=== PATIENT | male | born 1950 | race Hispanic/Latino ===

== ENCOUNTER 2023-12-29 09:47 | Inpatient (IN) | payer OTHER ==
[~2023-12-29] VITALS: Ht 177.8 cm; Wt 81.6 kg
[~2023-12-29 09:47] MED LIST: ACET-2079 PO; BICA50TA7 PO; IBUP-1554 PO; LEVO750T68 PO; OXYB5TAB20 PO; SENN-308 PO; SUCR1TAB2 PO; TAMS-1 PO
[2023-12-29 10:23] LABS: BASOPHILS # (AUTO) 0.05 K/uL (0.00-0.20); BASOPHILS % (AUTO) 0.5 % (0.0-5.0); EOSINOPHILS # (AUTO) 0.56 K/uL (0.00-0.70); EOSINOPHILS % (AUTO) 5.9 % (0.0-8.0); IMMATURE GRANULOCYTE ABSOLUTE 0.03 K/uL (0-1); LYMPHOCYTES # (AUTO) 1.8 K/uL (1.0-4.8); LYMPHOCYTES % (AUTO) 18.5 % (21.0-51.0); MEAN CORPUSCULAR HEMOGLOBIN 29.1 pg (27.0-33.0); MEAN CORPUSCULAR HGB CONC 33.9 g/dL (32.0-36.0); MEAN CORPUSCULAR VOLUME 85.7 fL (79-99); MONOCYTES # (AUTO) 0.8 K/uL (0.1-1.0); MONOCYTES % (AUTO) 8.5 % (3.0-13.0); NEUTROPHILS # (AUTO) 6.3 K/uL (1.8-7.7); NEUTROPHILS % (AUTO) 66.3 % (40.0-77.0); PLATELET COUNT (AUTO) 278 K/uL (130-400); RED BLOOD CELL COUNT(AUTO) 3.85 MIL/uL (4.50-6.20); RED CELL DISTRIBUTION WIDTH 11.8 % (11.0-15.5); WHITE BLOOD COUNT (AUTO) 9.5 K/uL (4.8-10.8)
[2023-12-29 10:33] LABS: CREATININE 1.5 mg/dL (0.5-1.3); POTASSIUM 3.8 mmol/L (3.5-5.1)
[2023-12-29] MEDS: ketOROlac 15MG/ML VIAL (15MG/ML) IV ONE (13:11)
[2023-12-29] MEDS: 0.9%NACL 1000ML 1,000 ML IV SCH ×2 (13:11→17:00)
[2023-12-29 13:35] LABS: APPEARANCE,URINE TURBID (CLEAR); BILIRUBIN,URINE NEGATIVE (NEGATIVE); COLOR,URINE LIGHT-ORANGE (YELLOW); GLUCOSE, URINE (UA) TRACE mg/dL (NEGATIVE); KETONES,URINE NEGATIVE (NEGATIVE); LEUKOCYTE ESTERASE ,URINE 500 Leu/uL (NEGATIVE); NITRATE,URINE NEGATIVE (NEGATIVE); PH,URINE 6.5 (5.0-8.0); PROTEIN,URINE NEGATIVE (NEGATIVE); RBC,URINE TNTC /HPF (0-1); SQUAMOUS EPITHELIAL CELL,UR RARE /HPF (0-2); UROBILINOGEN,URINE 0.2 mg/dL (0.2-1.0); WBC CLUMP MANY /HPF (0-1); WBC,URINE TNTC /HPF (0-1); YEAST,URINE BUDDING MANY /HPF (None Seen)
[2023-12-29] MEDS ORDERED: acetaMINOPHEN 325 MG TAB PO PRN (15:30)
[2023-12-29] MEDS ORDERED: PoTASSium chloRIDE 20MEQ ER 20 MEQ ERTAB PO PRN (15:30)
[2023-12-29] MEDS ORDERED: PoTASSium chloRIDE 20MEQ/100ML 100 ML IV PRN (15:30)
[2023-12-29] MEDS ORDERED: MAGNESIUM 2GM PREMIX 50ML 50 ML IV PRN (15:30)
[2023-12-29] MEDS ORDERED: PoTASSium chl 10% ELIXIR 20MEQ 20 MEQ/15 ML UDCUP PO PRN (15:30)
[2023-12-29] MEDS: ZOSYN 3.375GM +NS 50ML IV SCH (17:00)
[2023-12-29] MEDS ORDERED: GABA-529 PO (17:27)
[2023-12-29 18:21] VITALS: O2SAT 100
[2023-12-29 18:57] VITALS: BP 165/88; PULSE 74; RESP 16; TEMP 98.5
[2023-12-29 20:00] VITALS: BP 155/84; PULSE 76; RESP 16; TEMP 98.7
[2023-12-29 20:59] VITALS: O2SAT 97
[2023-12-29] MEDS: tamSULOsin HCL 0.4 MG CAP.ER.24H PO SCH (21:00)
[2023-12-29] MEDS: FAMOTIDINE 20MG TAB PO SCH (21:00)
[2023-12-29 22:03] VITALS: BP 160/65; PULSE 77; RESP 21; TEMP 98.9
[2023-12-29] MEDS: hydroMORPHone 1 MG INJ IVP ONE (22:05)
[2023-12-30] VITALS (9 sets, daily range): BP systolic 144–157; BP diastolic 74–93; PULSE 68–78; RESP 16–18; TEMP 98–99; O2SAT 97–98
[2023-12-30] MEDS: ondanSETRON 4MG INJ IVP PRN (04:11)
[2023-12-30 04:41] LABS: BASOPHILS # (AUTO) 0.06 K/uL (0.00-0.20); BASOPHILS % (AUTO) 0.8 % (0.0-5.0); EOSINOPHILS % (AUTO) 5.1 % (0.0-8.0); HEMATOCRIT 30.8 % (42-54); IMMATURE GRANULOCYTE ABSOLUTE 0.04 K/uL (0-1); LYMPHOCYTES % (AUTO) 12.9 % (21.0-51.0); MEAN CORPUSCULAR HEMOGLOBIN 29.5 pg (27.0-33.0); MEAN CORPUSCULAR HGB CONC 33.8 g/dL (32.0-36.0); MEAN CORPUSCULAR VOLUME 87.3 fL (79-99); MONOCYTES # (AUTO) 0.8 K/uL (0.1-1.0); NEUTROPHILS # (AUTO) 5.5 K/uL (1.8-7.7); NEUTROPHILS % (AUTO) 70.7 % (40.0-77.0); PLATELET COUNT (AUTO) 254 K/uL (130-400); RED BLOOD CELL COUNT(AUTO) 3.53 MIL/uL (4.50-6.20); RED CELL DISTRIBUTION WIDTH 11.7 % (11.0-15.5); WHITE BLOOD COUNT (AUTO) 7.8 K/uL (4.8-10.8)
[2023-12-30 04:50] LABS: INR 1.03 (0.85-1.15); PROTHROMBIN TIME 11.1 SEC (9.6-11.6)
[2023-12-30 04:51] LABS: PARTIAL THROMBOPLASTIN TIME 26.9 SEC (26.3-35.5)
[2023-12-30 05:15] LABS: ALBUMIN 2.7 g/dL (3.5-5.0); BILIRUBIN,TOTAL 0.7 mg/dL (0.2-1.0); CREATININE 1.6 mg/dL (0.5-1.3); MAGNESIUM 1.8 mg/dL (1.80-2.40); POTASSIUM 3.7 mmol/L (3.5-5.1); TOTAL PROTEIN, SERUM 6.3 g/dL (6.0-8.3)
[2023-12-30] MEDS: morPHINE 2 MG SYG IVP PRN (06:32)
[2023-12-30] MEDS ORDERED: GABApentin 100 MG CAPSULE PO PRN (10:30)
[2023-12-30] MEDS ORDERED: acetaMINOPHEN WITH coDEINE 1 TAB TAB PO PRN (10:30)
[2023-12-30] MEDS: PHENAZOpyridine HCL 200 MG TAB 200 MG TABLET PO SCH (11:13)
[2023-12-30] MEDS: SUCRALFATE 1 GM TABLET PO SCH (13:00)
[2023-12-30] MEDS: oxyBUTYnin chloRIDE 5 MG TABLET PO SCH (13:21)
[2023-12-30] MEDS: furoSEMIDE 40MG VIAL ONE (13:45)
[2023-12-30] MEDS: SENNOSIDES PO SCH (20:12)
[2023-12-30] MEDS: DOCUSATE SODIUM PO SCH (20:12)
[2023-12-30] MEDS ORDERED: tamSULOsin HCL 0.4 MG CAP.ER.24H PO SCH (21:00)
[2023-12-30] MEDS ORDERED: fluCONazole 200 MG/NS 100 ML IV SCH (22:00)
[2023-12-31] MEDS: fluCONazole 200 MG/NS 100 ML IV SCH (00:02)
[2023-12-31] MEDS: hydroMORPHone 0.5 MG SYG (0.5MG/0.5ML) IVP ONE (00:35)
[2023-12-31 04:13] VITALS: BP 148/83; PULSE 71; RESP 18; TEMP 98.1
[2023-12-31 06:25] LABS: BASOPHILS # (AUTO) 0.07 K/uL (0.00-0.20); BASOPHILS % (AUTO) 0.9 % (0.0-5.0); EOSINOPHILS # (AUTO) 0.41 K/uL (0.00-0.70); EOSINOPHILS % (AUTO) 5.2 % (0.0-8.0); HEMATOCRIT 32.8 % (42-54); IMMATURE GRANULOCYTE ABSOLUTE 0.03 K/uL (0-1); LYMPHOCYTES # (AUTO) 1.7 K/uL (1.0-4.8); LYMPHOCYTES % (AUTO) 21.3 % (21.0-51.0); MEAN CORPUSCULAR HEMOGLOBIN 29.1 pg (27.0-33.0); MEAN CORPUSCULAR HGB CONC 33.2 g/dL (32.0-36.0); MEAN CORPUSCULAR VOLUME 87.7 fL (79-99); MONOCYTES # (AUTO) 0.8 K/uL (0.1-1.0); MONOCYTES % (AUTO) 10.1 % (3.0-13.0); NEUTROPHILS # (AUTO) 4.9 K/uL (1.8-7.7); NEUTROPHILS % (AUTO) 62.1 % (40.0-77.0); PLATELET COUNT (AUTO) 273 K/uL (130-400); RED BLOOD CELL COUNT(AUTO) 3.74 MIL/uL (4.50-6.20); RED CELL DISTRIBUTION WIDTH 11.5 % (11.0-15.5); WHITE BLOOD COUNT (AUTO) 7.9 K/uL (4.8-10.8)
[2023-12-31 06:41] LABS: ALBUMIN 2.8 g/dL (3.5-5.0); BILIRUBIN,TOTAL 0.5 mg/dL (0.2-1.0); CREATININE 1.8 mg/dL (0.5-1.3); TOTAL PROTEIN, SERUM 6.7 g/dL (6.0-8.3)
[2023-12-31 08:00] VITALS: BP 154/87; PULSE 74; RESP 18; TEMP 98.3
[2023-12-31 09:45] VITALS: O2SAT 98
[2023-12-31] MEDS ORDERED: IOHEXOL-350 50ML VIAL IV ONE (09:58)
[2023-12-31 11:57] VITALS: BP 148/84; PULSE 69; RESP 18; TEMP 98.2
[2023-12-31 16:00] VITALS: BP 150/78; PULSE 77; RESP 18; TEMP 98.4
[2023-12-31 20:45] VITALS: O2SAT 97
[2024-01-01] VITALS (7 sets, daily range): BP systolic 127–159; BP diastolic 68–86; PULSE 68–98; RESP 17–20; TEMP 97.9–98.7; O2SAT 99
[2024-01-01] MEDS: ketOROlac 15MG/ML VIAL (15MG/ML) IV ONE (03:18)
[2024-01-01] MEDS: LACTULOSE 20 GM/30 ML UDCUP PO PRN (10:24)
[2024-01-01] MEDS: LACTULOSE 20 GM/30 ML UDCUP ONE (10:24)
[2024-01-01] MEDS: LACTULOSE 20 GM/30 ML UDCUP PO ONE (10:44)
[2024-01-01] MEDS: INSULIN humuLIN R 100 UNIT/ML 3ML SQ SCH (11:04)
[2024-01-01 13:32] LABS: HEMATOCRIT 32.1 % (42-54); MEAN CORPUSCULAR HEMOGLOBIN 28.9 pg (27.0-33.0); MEAN CORPUSCULAR HGB CONC 34.3 g/dL (32.0-36.0); MEAN CORPUSCULAR VOLUME 84.5 fL (79-99); RED BLOOD CELL COUNT(AUTO) 3.8 MIL/uL (4.50-6.20); RED CELL DISTRIBUTION WIDTH 11.6 % (11.0-15.5); WHITE BLOOD COUNT (AUTO) 7.7 K/uL (4.8-10.8)
[2024-01-01 13:41] LABS: CREATININE 1.8 mg/dL (0.5-1.3)
[2024-01-01 13:45] LABS: BILIRUBIN,TOTAL 0.5 mg/dL (0.2-1.0); MAGNESIUM 2.2 mg/dL (1.80-2.40); TOTAL PROTEIN, SERUM 7.1 g/dL (6.0-8.3)
[2024-01-01] MEDS: hydroMORPHone 0.5 MG SYG (0.5MG/0.5ML) IVP PRN (21:12)
[2024-01-02 00:01] VITALS: BP 152/85; PULSE 75; RESP 16; TEMP 98
[2024-01-02 04:00] VITALS: BP 155/84; PULSE 73; RESP 17; TEMP 98.1
[2024-01-02 04:33] LABS: HEMATOCRIT 31.3 % (42-54); MEAN CORPUSCULAR HEMOGLOBIN 28.7 pg (27.0-33.0); MEAN CORPUSCULAR HGB CONC 33.9 g/dL (32.0-36.0); MEAN CORPUSCULAR VOLUME 84.8 fL (79-99); RED BLOOD CELL COUNT(AUTO) 3.69 MIL/uL (4.50-6.20); RED CELL DISTRIBUTION WIDTH 11.6 % (11.0-15.5)
[2024-01-02 04:58] LABS: ALBUMIN 3.1 g/dL (3.5-5.0); BILIRUBIN,TOTAL 0.7 mg/dL (0.2-1.0); CREATININE 1.7 mg/dL (0.5-1.3); POTASSIUM 3.7 mmol/L (3.5-5.1)
[2024-01-02 08:16] VITALS: BP 156/91; PULSE 76; RESP 16; TEMP 98.4
[2024-01-02 10:26] VITALS: O2SAT 99
[2024-01-02] MEDS ORDERED: FLUC100T12 PO (12:11)
[2024-01-02] MEDS ORDERED: DOCU-116 PO (12:11)
[2024-01-02] MEDS ORDERED: ACET-2079 PO (12:11)
[2024-01-02] MEDS ORDERED: CEFD300C3 PO (12:13)
== END 2024-01-02 13:26 | disposition home or self-care (01) | DRG 690 ==
LOC: EDH 09:47 → EDHIP 15:21 → 3BH 18:20
PROVIDERS: ADMIT Hospitalist; ATTEND Hospitalist
DX: N13.6 Pyonephrosis (principal); E87.1 Hypo-osmolality and hyponatremia; B37.49 Other urogenital candidiasis; Z16.12 Extended spectrum beta lactamase (ESBL) resistance; N17.9 Acute kidney failure, unspecified; E11.65 Type 2 diabetes mellitus with hyperglycemia; E78.5 Hyperlipidemia, unspecified; M54.9 Dorsalgia, unspecified; B96.20 Unspecified Escherichia coli [E. coli] as the cause of diseases classified elsewhere; K80.20 Calculus of gallbladder without cholecystitis without obstruction; Z79.899 Other long term (current) drug therapy; Z85.46 Personal history of malignant neoplasm of prostate; Z92.3 Personal history of irradiation
CPT/HCPCS: 36415; 74176; 74400; 78708; 80048; 80053; 81001; 82948; 83735; 85025; 85027; 85610; 85730; 87086; 96374; 96375; A9562; G0378; J1171; J1450; J1815; J1885; J1940; J2270; J2405; J2543; J7030; Q9967; A4600